=== PATIENT | male | born 1950 | race Caucasian/White ===

== ENCOUNTER 2017-09-30 18:55 | Inpatient (IN) | END 2017-10-19 15:34 | disposition home or self-care (01) | DRG 673 ==

== ENCOUNTER 2018-03-07 11:14 | Day surgery (SDC) | END 2018-03-07 13:49 | disposition home or self-care (01) ==

== ENCOUNTER 2018-03-07 13:56 | Emergency (ER) | END 2018-03-07 18:22 | disposition home or self-care (01) ==

== ENCOUNTER 2018-03-09 10:33 | Day surgery (SDC) | END 2018-03-09 15:15 | disposition home or self-care (01) ==

== ENCOUNTER 2018-05-09 17:08 | Inpatient (IN) | END 2018-05-12 16:50 | disposition home or self-care (01) | DRG 308 ==

== ENCOUNTER 2019-03-30 08:44 | Emergency (ER) | payer OTHER ==
[~2019-03-30] VITALS: Wt 78.0 kg
[~2019-03-30 08:44] MED LIST: APIX2.5T PO; ATOR20TA65 PO; CARV25TA79 PO; CHOL100062 PO; FAMO20TA18 PO; FURO40TA4 PO; GABA100C14 PO; LEVO25TA6 PO; LISI-471 PO; SEVE800T7 PO; SITA25TA3 PO; THIA100T56 PO
[2019-03-30] MEDS ORDERED: MAGNESIUM CITRATE 300 ML BTL PO ONE (10:30)
[2019-03-30] MEDS ORDERED: DOCU-144 PO (10:40)
--- NOTE | 2019-03-30 10:45 | ERD ---
ER Documentation Chief Complaint Chief Complaint abd pain with constipation for the past 3 days. missed 2 times dialysis. HPI 68-year-old male who presents via EMS. Patient states that he missed dialysis for the past 3 days. He also notes constipation. He describes bloating and lack of bowel movement for 24 to 48 hours. He denies any nausea or vomiting. No significant pain or discomfort just some mild cramping. He denies any chest pain or shortness of breath. No other complaints. Translation services were utilized during this patient's encounter Language: Kyrgyz Source: Video ROS All systems reviewed and are negative except as per history of present illness. Medications Home Meds Active Scripts Docusate Sodium* (Colace*) 100 Mg Capsule, 100 MG PO BID PRN for CONSTIPATION, #30 CAP Prov:SELWYN HERNANDEZ MD 03/30/19 Furosemide* (Furosemide*) 40 Mg Tablet, 40 MG PO DAILY for 7 Days, TAB as at home Prov:MILE JESSICA MD 10/26/18 Cholecalciferol* (Vitamin D3*) 1,000 Unit Tablet, 1000 UNIT PO DAILY for 30 Days, #30 TAB Prov:MILE JESSICA MD 10/26/18 Thiamine* (Vitamin B-1*) 100 Mg Tablet, 100 MG PO DAILY for 30 Days, #30 TAB Prov:MILE JESSICA MD 10/26/18 Levothyroxine Sodium* (Levothyroxine Sodium*) 25 Mcg Tablet, 25 MCG PO DAILY@06 for 30 Days, #30 TAB Prov:MILE JESSICA MD 10/26/18 Famotidine* (Famotidine*) 20 Mg Tablet, 20 MG PO HS for 7 Days, #10 TAB otc Prov:MILE JESSICA MD 10/26/18 Sevelamer Carbonate* (Renvela*) 800 Mg Tablet, 2400 MG PO WITH MEALS for 10 Days, #30 TAB 2 Refills Prov:MILE JESSICA MD 10/26/18 Lisinopril* (Lisinopril*) 20 Mg Tablet, 40 MG PO BID for 14 Days, #15 TAB Prov:MILE JESSICA MD 10/26/18 Carvedilol* (Carvedilol*) 25 Mg Tablet, 25 MG PO BID for 14 Days, #30 TAB Prov:MILE JESSICA MD 10/26/18 Apixaban* (Eliquis*) 2.5 Mg Tablet, 2.5 MG PO BID for 30 Days, #60 TAB 1 Refill Prov:MILE JESSICA MD 10/26/18 Atorvastatin Calcium (Atorvastatin Calcium) 20 Mg Tablet, 20 MG PO QHS for 30 Days, #30 TAB 2 Refills Prov:RAUL SCHULTE NP 05/12/18 Reported Medications Gabapentin* (Gabapentin*) 100 Mg Capsule, 100 MG PO TID, #90 CAP 10/16/18 Sitagliptin* (Januvia*) 25 Mg Tablet, 25 MG PO DAILY, #30 TAB 10/16/18 Allergies Allergies: Coded Allergies: No Known Allergy (Unverified , 10/16/18) PMhx/Soc History of Surgery: Yes (Left upper arm fistula- dialysis) Anesthesia Reaction: No Hx Neurological Disorder: No Hx Respiratory Disorders: No Hx Cardiac Disorders: Yes (A-FIB;HTN;) Hx Psychiatric Problems: No Hx Miscellaneous Medical Probl: No Hx Alcohol Use: No Hx Substance Use: No Hx Tobacco Use: No Smoking Status: Never smoker FmHx Family History: No diabetes Physical Exam Vitals Vital Signs Date Temp Pulse Resp B/P (MAP) Pulse Ox O2 O2 Flow FiO2 Time Delivery Rate 03/30/19 98.5 101 20 123/95 99 Room Air 09:34 (104) 03/30/19 98.5 97 20 138/90 99 08:53 (106) Physical Exam General: Well developed, well nourished, no acute distress Head: Normocephalic, atraumatic. Eyes: Pupils equally reactive, EOM intact ENT: Moist mucous membranes Neck: Supple, no lymphadenopathy Respiratory: Lungs clear bilaterally, no distress Cardiovascular: RRR, no murmurs, rubs, or gallops Abdominal: Soft, nontender, slightly protuberant : Deferred MSK: No edema, no unilateral swelling, 5/5 strength Neurologic: Alert and oriented, moving all extremities, normal speech, no focal weakness, no cerebellar signs Skin: No rash Psych: Normal mood Result Diagram: 03/30/1990803/30/19 09 Results 24 hrs Laboratory Tests Test 03/30/19 09:09 White Blood Count 10.4 10^3/ul Red Blood Count 3.90 10^6/ul Hemoglobin 11.5 g/dl Hematocrit 34.8 % Mean Corpuscular Volume 89.2 fl Mean Corpuscular Hemoglobin 29.5 pg Mean Corpuscular Hemoglobin Concent 33.0 g/dl Red Cell Distribution Width 14.6 % Platelet Count 262 10^3/UL Mean Platelet Volume 11.6 fl Immature Granulocytes % 0.600 % Neutrophils % 66.3 % Lymphocytes % 20.2 % Monocytes % 11.3 % Eosinophils % 1.1 % Basophils % 0.5 % Nucleated Red Blood Cells % 0.0 /100WBC Immature Granulocytes # 0.060 10^3/ul Neutrophils # 6.9 10^3/ul Lymphocytes # 2.1 10^3/ul Monocytes # 1.2 10^3/ul Eosinophils # 0.1 10^3/ul Basophils # 0.1 10^3/ul Nucleated Red Blood Cells # 0.0 10^3/ul Prothrombin Time 15.9 Sec Prothrombin Time Ratio 1.2 INR International Normalized Ratio 1.26 Activated Partial Thromboplast Time 28.5 Sec Sodium Level 136 mmol/L Potassium Level 4.6 mmol/L Chloride Level 94 mmol/L Carbon Dioxide Level 19 mmol/L Anion Gap 23 Blood Urea Nitrogen 128 mg/dl Creatinine 15.29 mg/dl Est Glomerular Filtrat Rate mL/min 3 mL/min Glucose Level 219 mg/dl Calcium Level 8.4 mg/dl Total Bilirubin 0.5 mg/dl Direct Bilirubin 0.00 mg/dl Indirect Bilirubin 0.5 mg/dl Aspartate Amino Transf (AST/SGOT) 14 IU/L Alanine Aminotransferase (ALT/SGPT) 8 IU/L Alkaline Phosphatase 186 IU/L Troponin I 0.017 ng/ml Total Protein 7.7 g/dl Albumin 4.0 g/dl Globulin 3.70 g/dl Albumin/Globulin Ratio 1.08 Lipase 122 U/L Current Medications Medications Dose Sig/Faby Start Time Status Last (Trade) Ordered Route PRN Stop Time Admin Dose Reason Admin Magnesium 300 ml ONCE ONCE 03/30/19 DC Citrate PO 10:30 03/30/19 (Citroma) 10:31 Procedures/MDM EKG, MONITORS, & DIAGNOSTIC IMAGING: EKG: I reviewed and interpreted a 12-lead EKG. Rhythm: Normal sinus rhythm ST Changes: No contiguous ST segment elevations T waves: No contiguous T wave inversions Impression: No evidence of acute cardiac ischemia CT abdomen and pelvis: IMPRESSION: 1. Mild bilateral pleural effusions. Bibasilar atelectasis. 2. Indeterminate spiculated 13 mm left lower lobe pulmonary nodule is again noted, grossly stable - correlation with prior biopsy results is recommended. 3. Cholelithiasis, without evidence for cholecystitis. 4. Aortoiliac atherosclerotic calcifications. 5. Nonspecific trace amount of pelvic free fluid. 6. Mildly enlarged prostate - correlate with PSA level. 7. No evidence of bowel obstruction, lymphadenopathy, or acute inflammatory process. RPTAT: AAQQ LAB INTERPRETATION: I reviewed the laboratory testing and it shows end-stage renal disease but no hyperkalemia MEDICAL DECISION MAKING: Patient presents for constipation. His main complaint is likely constipation without signs or symptoms concerning for bowel obstruction but given the patient's comorbidities CT imaging of the abdomen pelvis will be appropriate. Patient has missed dialysis and requires screening for hyperkalemia or need for emergent dialysis. ER COURSE: * CT imaging is negative. Patient given magnesium citrate. * Patient has elevated BUN and creatinine and likely requires dialysis but not emergently. No hyperkalemia no evidence of significant volume overload. We called the patient's dialysis center and they can fit him in at noon today. The patient will be discharged and taken directly to his dialysis session. * At this point I feel the patient can be safely discharged home. He is appropriate and timely dialysis scheduled for today. A bowel regimen will be initiated. CONSULTATION: None DISPOSITION PLAN: The patient does not have an identifiable emergent medical condition that warrants inpatient hospitalization at this time. The patient is deemed safe for discharge with outpatient follow-up. We discussed follow up with the patient's primary care doctor within 24 to 48 hours as needed. We also discussed return to the emergency room for worsening symptoms or worsening condition. Outpatient referral: None required Discharge Medications: Colace Departure Diagnosis: Primary Impression: Constipation Constipation type: unspecified constipation type Qualified Codes: K59.00 - Constipation, unspecified Additional Impression: End stage renal disease on dialysis Condition: Stable Patient Instructions: Constipation (Adult) [facility] Usted se simmons hecho un examen mdico de control que le indica que no est en brie condicin que requiera tratamiento urgente en el Departamento de Emergencia. Un estudio ms profundo y el tratamiento de ballesteros condicin pueden esperar sin ningn riesgo hasta que usted sea atendida/o en el consultorio de ballesteros mdico o brie clnica. Es responsabilidad suya arreglar brie gautam para el seguimiento del michael. MANEJO DE CONDICIONES NO URGENTES EN EL FUTURO 1) Si usted tiene un mdico de atencin primaria: Usted debera llamar a ballesteros mdico de atencin primaria antes de venir al departamento de emergencia. Despus de las horas de consultorio, ballesteros doctor o ballesteros asociado/a est disponible por telfono. El mdico o enfermero de aminah en el servicio telefnico puede asesorarle por angie medio para atender el problema, o michael contrario se puede programar brie gautam. 2) Si usted no tiene un mdico de atencin primaria: Llame al mdico o clnica de referencia que aparece abajo tori las horas de consultorio para hacer brie gautam para que le vean. CLINICAS: [facility] [phone] [facility] [phone] [facility]. [facility] [phone] [facility]. [facility] [phone] [facility] [place] [id number] [phone] [facility]. [phone] [facility] () Usted se simmons hecho un examen mdico de control que le indica que no est en brie condicin que requiera tratamiento urgente en el Departamento de Emergencia. Un estudio ms profundo y el tratamiento de ballesterso condicin pueden esperar sin ningn riesgo hasta que usted sea atendida/o en el consultorio de ballesteros mdico o brie clnica. Es responsabilidad suya arreglar brie gautam para el seguimiento del michael. MANEJO DE CONDICIONES NO URGENTES EN EL FUTURO 1) Si usted tiene un mdico de atencin primaria: Usted debera llamar a ballesteros mdico de atencin primaria antes de venir al departamento de emergencia. Despus de las horas de consultorio, ballesteros doctor o ballesteros asociado/a est disponible por telfono. El mdico o enfermero de aminah en el servicio telefnico puede asesorarle por angie medio para atender el problema, o michael contrario se puede programar brie gautam. 2) Si usted no tiene un mdico de atencin primaria: Llame al mdico o condado institucions de referencia que aparece abajo tori las horas de consultorio para hacer brie gautam para que le vean. SI USTED NO PUEDE PAGAR PARA GRAHAM UN MEDICO puede ir a: [facility] [address] [place] [address] [facility] [address] [place] [address] [facility] [address] [place] [address] [facility]A [facility] [address] [place], [place] [phone] Additional Instructions: You will be discharged to go get your dialysis today at noon. Llame al doctor nombrado abajo (Referral Sources) MAANA y macario brie GAUTAM PARA DENTRO DE BRIE SEMANA. Dgale a la secretaria que nosotros le instruimos hacer esta gautam.Avise o llame si ballesteros condicin se empeora antes de la gautam. SELWYN HERNANDEZ MD Mar 30, 2019 10:45
[2019-03-30] MEDS ORDERED: CEPH500C PO (10:57)
[2019-03-30 11:04] VITALS: BP 125/94; PULSE 99; RESP 16
== END 2019-03-30 11:47 | disposition home or self-care (01) ==
LOC: E/R 08:44
DX: K59.00 Constipation, unspecified (principal); I12.0 Hypertensive chronic kidney disease with stage 5 chronic kidney disease or end stage renal disease; N18.6 End stage renal disease; Z99.2 Dependence on renal dialysis; Z79.84 Long term (current) use of oral hypoglycemic drugs; Z79.01 Long term (current) use of anticoagulants
CPT/HCPCS: 36415; 74176; 80053; 83690; 84484; 85025; 85610; 85730; 93005